=== PATIENT | male | born 1945 | race African-American/Black ===

== ENCOUNTER 2017-09-20 17:33 | Emergency (ER) | payer MEDICARE, OTHER, SELFPAY ==
[2017-09-20 17:33] VITALS: BP 149/87; PULSE 70; RESP 16; TEMP 36.8; O2SAT 97; BMI 27.6
[2017-09-20 18:20] LABS: Mucous, Urine 0 SEEN /hpf (<or=2+)
[2017-09-20 18:26] LABS: Color, Urine Yellow (Yellow); Glucose, Dipstick Normal (Normal); Ketone-Dipstick Negative (Negative); Leukocyte Esterase-Dipstick 500 /ul (Negative); Nitrite-Dipstick Negative (Negative); Occult Blood-Urine 250 /ul (Negative); Protein-Dipstick 100 mg/dl (Negative); Urine Bilirubin Dipstick Negative (Negative); Urine Clarity Cloudy (Clear); Urine Urobilinogen Normal (Normal)
[2017-09-20 18:37] LABS: White Blood Cells >100 SEEN /hpf (0-5)
[2017-09-20 18:38] LABS: Bacteria 3+ /hpf (None Seen); Red Blood Cells-Urine 25-50 SEEN /hpf (0-5); Squamous Epithelial Cells - UA 0-5 SEEN /hpf (0-5)
[2017-09-20] MEDS: Smz/Tmp Ds Tablet 1 TABLET PO (18:50)
[2017-09-20 18:52] VITALS: BP 144/82; PULSE 70; RESP 14; O2SAT 98
--- NOTE | 2017-09-20 19:38 | ED.DCSUM_ITS ---
- ER Visit Summary Date of Service: 09/20/17 Chief Complaint: Urinary retention History of Present Illness: The patient is a 72 M presenting secondary to urinary retention. Patient reports that he has a past history of prostate surgery, and also had a history of nephrectomy in the distant past secondary to renal cancer. Patient reports that yesterday he was feeling fine, and then today he had a sudden onset of an inability to urinate. Patient reports that he had some white penile discharge. Patient states that he was feeling a significant amount of discomfort and fullness, and then when he arrived to triage he had a sudden outflow of urine and was pants. Patient states that he did get some relief from that. Patient denies that he has been having any sort of flank pain or fevers associated with this. Review of systems otherwise negative. Physical Examination: Vital signs within normal limits patient is afebrile. Well-nourished male no acute distress. Moist mucous membranes. Heart regular lungs clear. Abdomen soft nontender nondistended normal bowel sounds no masses , no flank tenderness to percussion. exam shows nontender genitalia with some blood at the meatus, testicles are normal and nontender and a normal lie. No edema noted. Remainder the physical otherwise unremarkable. Test Results: Urinalysis shows evidence of significant amount of leukocytes and blood, bedside ultrasound pre-and post void is negative for urinary retention Emergency Department Course and Treatment: Patient presented for evaluation secondary to urinary retention. It seem like this spontaneously resolved while the patient was in triage as he had a sudden outflowing of a significant amount of urine. I did a bedside ultrasound on the patient and the patient appeared to have about 200 cc or so of urine in his bladder. He was able to spontaneously void and give us a urine sample which showed evidence of infection. Patient will be placed on a course of Bactrim for this, he will follow-up with his primary care physician to ensure resolution Disposition: Discharge Impression: 1. Urinary retention 2. Urinary tract infection This note was generated with [employer] dictation software. It may contain incorrect words, spelling, and punctuation that were not noted in review of the chart prior to signing ED Disposition - Plan for ED Patient: Disposition: Home or Assisted Living Chief Complaint: Complaint Diagnosis: UTI (urinary tract infection) Instructions: ED UTI Cystitis Male Prescriptions: Smz/Tmp Ds [Bactrim Ds] 1 tab PO BID #14 tab Referrals: Ryan Lam DO [Primary Care Provider] - 5-7 Days
[2017-09-20 19:40] VITALS: BP 113/89; PULSE 72; RESP 15; O2SAT 98
== END 2017-09-20 19:55 | disposition home or self-care (01) ==
PROVIDERS: Emergency Provider Emergency Medicine; Family Provider Preventive Medicine Occupational Medicine; PCP Preventive Medicine Occupational Medicine
DX: N39.0 Urinary tract infection, site not specified (principal); R33.9 Retention of urine, unspecified; Z90.5 Acquired absence of kidney; Z85.528 Personal history of other malignant neoplasm of kidney; Z79.899 Other long term (current) drug therapy
CPT/HCPCS: 81001; 99283

== ENCOUNTER → 2018-08-24 | Outpatient (CLI) | payer MEDICARE, OTHER, SELFPAY ==
[2018-08-24 10:46] LABS: PSA,Total- Diagnostic 0.08 ng/mL (0.0-4.0)
== END | disposition home or self-care (01) ==
LOC: LAB 09:15
PROVIDERS: Family Provider Preventive Medicine Occupational Medicine; PCP Preventive Medicine Occupational Medicine; Referring Provider Urology; Visit Provider Urology
DX: C61 Malignant neoplasm of prostate (principal)
CPT/HCPCS: 36415; 84153

== ENCOUNTER → 2019-02-22 10:04 | Outpatient (CLI) | payer MEDICARE, OTHER, SELFPAY ==
[2019-02-22 11:49] LABS: PSA,Total- Diagnostic 0.06 ng/mL (0.0-4.0)
== END ==
PROVIDERS: Family Provider Preventive Medicine Occupational Medicine; PCP Preventive Medicine Occupational Medicine; Referring Provider Urology; Visit Provider Urology
DX: C61 Malignant neoplasm of prostate (principal)
CPT/HCPCS: 36415; 84153

== ENCOUNTER → 2020-04-09 13:45 | Outpatient (CLI) | payer MEDICARE, OTHER, SELFPAY ==
[2020-04-09 15:40] LABS: PSA,Total- Diagnostic 0.19 ng/mL (0.0-4.0)
== END ==
LOC: LAB 13:47
PROVIDERS: PCP Preventive Medicine Occupational Medicine; Referring Provider Urology; Visit Provider Urology
DX: N39.0 Urinary tract infection, site not specified (principal); Z85.528 Personal history of other malignant neoplasm of kidney
CPT/HCPCS: 36415; 84153; 87086; 87088; 87186

== ENCOUNTER → 2020-11-12 12:00 | Outpatient (CLI) | payer MEDICARE, OTHER, SELFPAY ==
[2020-11-12 13:10] LABS: PSA,Total- Diagnostic 0.08 ng/mL (0.0-4.0)
[2020-11-12 17:33] LABS: Bacteria 0 SEEN /hpf (None Seen); Mucous, Urine 0 SEEN /hpf (<or=2+); White Blood Cells 0 SEEN /hpf (0-5)
[2020-11-12 18:49] LABS: Color, Urine Yellow (Yellow); Glucose, Dipstick Normal (Normal); Ketone-Dipstick Negative (Negative); Leukocyte Esterase-Dipstick Negative /ul (Negative); Nitrite-Dipstick Negative (Negative); Occult Blood-Urine 10 /ul (Negative); Protein-Dipstick Negative (Negative); Urine Bilirubin Dipstick Negative (Negative); Urine Clarity Sl. Cloudy (Clear); Urine Urobilinogen Normal (Normal)
[2020-11-12 19:24] LABS: Red Blood Cells-Urine 0-5 SEEN /hpf (0-5); Squamous Epithelial Cells - UA 0-5 SEEN /hpf (0-5)
== END ==
PROVIDERS: PCP Preventive Medicine Occupational Medicine; Referring Provider Nurse Practitioner Adult Health; Visit Provider Nurse Practitioner Adult Health
DX: C61 Malignant neoplasm of prostate (principal); R31.29 Other microscopic hematuria
CPT/HCPCS: 36415; 81001; 84153

== ENCOUNTER → 2020-11-16 13:48 | Outpatient (CLI) | payer MEDICARE, OTHER, SELFPAY ==
--- NOTE | 2020-11-16 13:54 | CT_ITS ---
STUDY: CT ABDOMEN AND PELVIS WITH CONTRAST REASON FOR EXAM: Male, 75 years old. Generalized abdominal pain RADIATION DOSAGE (If Supplied By Facility): CTDIvol = ( 19.11 ) mGy, DLP = ( 965.33 ) mGycm TECHNIQUE: CT images were obtained from the dome of the diaphragm to the symphysis pubis without oral contrast. IV 100mL Isovue-370 was administered. Sagittal and coronal images were reconstructed. Individualized dose optimization techniques were used for this CT. COMPARISON: 27 February 2017 FINDINGS: Lung bases are moderately emphysematous. The visualized portions of the heart are within normal limits. There are stable multiple small hepatic cysts measuring up to 2 cm. Normal gallbladder and extrahepatic biliary system. Normal spleen. Normal pancreas. Normal bilateral adrenal glands. Right kidney contains simple benign cysts. There is no hydronephrosis. Left kidney surgically removed. Surgical bed is clear and occupied by colon. Normal visualized stomach. Normal small intestine. Normal colon. The appendix is visualized and appears normal. Normal abdominal aorta. Normal inferior vena cava. Normal retroperitoneum. Normal urinary bladder. Normal abdominal wall. Normal osseous structures. Is moderate thecal sac stenosis at L3-L4 and L4-L5 due to spondylosis. Appearance is stable since prior. CT/Abdomen/Pelvis W IV Cont ONLY IMPRESSION: 1. No acute pneumonia. 2. Polycystic liver/kidney disease of mild severity. Electronically Signed: Juarez Shah MD at 20:04 EDT Tel , Service support ,
[2020-11-16 14:30] LABS: CREATININE FINGERSTICK 1.7 mg/dL (0.70-1.30)
== END ==
PROVIDERS: PCP Preventive Medicine Occupational Medicine; Referring Provider Urology; Visit Provider Urology
DX: R10.84 Generalized abdominal pain (principal); M25.551 Pain in right hip
CPT/HCPCS: 74177; Q9967

== ENCOUNTER → 2022-02-20 | Outpatient (CLI) | payer MEDICARE, OTHER, SELFPAY | END | disposition home or self-care (01) | LOC: LABSPEC 17:43 | PROVIDERS: PCP Preventive Medicine Occupational Medicine; Referring Provider Urology; Visit Provider Urology | DX: R31.29 Other microscopic hematuria (principal) | CPT/HCPCS: 87077; 87086; 87088; 87186 ==

== ENCOUNTER → 2024-05-16 | Outpatient (CLI) | payer MEDICARE, OTHER, SELFPAY ==
[2024-05-16 10:24] LABS: PSA,Total- Diagnostic 0.09 ng/mL (0.00-4.00)
== END | disposition home or self-care (01) ==
LOC: LAB 09:02
PROVIDERS: PCP Preventive Medicine Occupational Medicine; Referring Provider Nurse Practitioner; Visit Provider Nurse Practitioner
DX: C61 Malignant neoplasm of prostate (principal)
CPT/HCPCS: 36415; 84153